=== PATIENT | male | born 1965 | race Caucasian/White ===

== ENCOUNTER 2021-03-17 09:48 | Day surgery (SDC) | payer OTHER ==
[~2021-03-17] VITALS: Ht 170.2 cm; Wt 118.2 kg
[~2021-03-17 09:48] MED LIST: SODIUM CHLORIDE 0.9% 1,000 ML IV ONE; SODIUM CHLORIDE 0.9% 1,000 ML ONE
[2021-03-17] MEDS ORDERED: LOSA1TAB37 PO (11:41)
[2021-03-17] MEDS ORDERED: METO50 PO (11:41)
[2021-03-17] MEDS ORDERED: ATOR40TA28 PO (11:41)
[2021-03-17] MEDS ORDERED: ASPI-1450 PO (11:41)
[2021-03-17] MEDS ORDERED: CLOP75TA60 PO (11:41)
[2021-03-17] MEDS ORDERED: MULT-660 PO (11:41)
[2021-03-17] MEDS ORDERED: SODIUM BICARBONATE 50 MEQ/50 ML VIAL ONE (13:53)
[2021-03-17] MEDS ORDERED: IOHEXOL 300 MG/ML 50 ML VIAL ONE (13:53)
[2021-03-17] MEDS ORDERED: IOHEXOL 300 MG/ML 150 ML VIAL ONE (13:53)
[2021-03-17] MEDS ORDERED: HEPARIN SODIUM 1000 UNITS/NS 1,000 ML ONE (13:53)
[2021-03-17] MEDS ORDERED: LIDOCAINE/PF 1% 30 ML VIAL ONE (13:53)
[2021-03-17] MEDS ORDERED: LOSA50TA37 PO (13:56)
[2021-03-17] MEDS ORDERED: AMLO5TAB66 PO (13:57)
[2021-03-17] MEDS ORDERED: METO-558 PO (13:57)
[2021-03-17 14:10] VITALS: BP 126/70
[2021-03-17] MEDS ORDERED: MIDAZOLAM HCL 2 MG/2 ML VIAL ONE (14:27)
[2021-03-17] MEDS ORDERED: FentaNYL CITRATE PF 100 MCG/2 ML VIAL ONE (14:27)
[2021-03-17] MEDS ORDERED: LIDOCAINE 1% 30 ML/SOD BICARB 8.4% 4 ML SQ ONE (14:45)
[2021-03-17] MEDS ORDERED: IOHEXOL 300 MG/ML 150 ML VIAL IARTER ONE (14:45)
[2021-03-17] MEDS ORDERED: FentaNYL CITRATE PF 100 MCG/2 ML VIAL IVP ONE ×2 (14:45)
[2021-03-17] MEDS ORDERED: MIDAZOLAM HCL 2 MG/2 ML VIAL IVP ONE ×2 (14:45)
[2021-03-17] MEDS ORDERED: HEPARIN SODIUM 1000 UNITS/NS 1,000 ML IARTER ONE (14:45)
[2021-03-17 15:00] VITALS: BP 117/60
== END 2021-03-17 18:55 | disposition home or self-care (01) ==
LOC: CATHLAB 09:48
PROVIDERS: ATTEND Internal Medicine Interventional Cardiology
DX: R94.39 Abnormal result of other cardiovascular function study (principal); R07.9 Chest pain, unspecified; I10 Essential (primary) hypertension; E78.5 Hyperlipidemia, unspecified; I73.9 Peripheral vascular disease, unspecified; Z79.82 Long term (current) use of aspirin; Z79.899 Other long term (current) drug therapy; E66.9 Obesity, unspecified
CPT/HCPCS: 93005; 93458; 99152; C1760; J1644; J2250; J3010; J3490 ×2; J7030; Q9967 ×2